=== PATIENT | female | born 1995 | race Two or more races ===

== ENCOUNTER → 2020-05-15 | Outpatient (CLI) | payer BC ==
[2020-05-15 10:24] LABS: Basophils # (auto) 0 10 ^3/uL (0-0.2); Basophils % (auto) 0.2 % (0.0-2.0); Eosinophils # (auto) 0.1 10 ^3/uL (0-0.8); Eosinophils % (auto) 0.7 % (0.0-7.0); Hematocrit 40.5 % (36.0-46.0); Hemoglobin 13.5 g/dL (12.2-16.2); Lymphocytes # (auto) 2.1 10 ^3/uL (0.4-5.4); Lymphocytes % (auto) 27.9 % (10.0-50.0); Mean Corpuscular Hemoglobin 27.8 pg (28.0-32.0); Mean Corpuscular Hgb Conc. 33.3 g/dL (32.0-36.0); Mean Corpuscular Volume 83.4 fL (80.0-100.0); Monocytes # (auto) 0.4 10 ^3/uL (0-1.3); Monocytes % (auto) 5.8 % (0.0-12.0); Neutrophils # (auto) 4.9 10 ^3/uL (1.6-8.6); Neutrophils % (auto) 65.4 % (37.0-80.0); Nucleated Red Blood Cells % 0.1 %; Platelet Count (auto) 238 10^3/uL (140-450); Red Blood Cells 4.86 10^6/uL (4.0-5.20); White Blood Cell 7.5 10^3/uL (4.4-10.8)
[2020-05-15 10:42] LABS: Alcohol, Urine < 3.0 mg/dL (0-10); Amphetamine Screen, Urine NEGATIVE (NEGATIVE); Barbiturate Scree,Urine NEGATIVE (NEGATIVE); Benzodiazephine Screen, Urine NEGATIVE (NEGATIVE); Cannabinoid Screen, Urine NEGATIVE (NEGATIVE); Cocaine Screen, Urine NEGATIVE (NEGATIVE); Opiate Scree,Urine NEGATIVE (NEGATIVE); Phencyclidine Screen, Urine NEGATIVE (NEGATIVE)
[2020-05-16 05:06] LABS: RPR Non Reactive (Non Reactive)
== END | disposition home or self-care (01) ==
LOC: LAB 09:50
PROVIDERS: ATTEND Obstetrics & Gynecology
DX: Z34.81 Encounter for supervision of other normal pregnancy, first trimester (principal); Z3A.10 10 weeks gestation of pregnancy; Z31.430 Encounter of female for testing for genetic disease carrier status for procreative management
CPT/HCPCS: 36415; 80307; 83036; 84112; 84144; 84702; 85025; 86592; 86703; 86762; 86850; 86900; 86901; 87086; 87340

== ENCOUNTER → 2020-11-13 | Outpatient (CLI) | payer BC ==
[2020-11-13 12:34] LABS: Basophils # (auto) 0 10 ^3/uL (0-0.2); Basophils % (auto) 0.2 % (0.0-2.0); Eosinophils # (auto) 0 10 ^3/uL (0-0.8); Eosinophils % (auto) 0.4 % (0.0-7.0); Hematocrit 31.8 % (36.0-46.0); Hemoglobin 10.8 g/dL (12.2-16.2); Lymphocytes # (auto) 1.8 10 ^3/uL (0.4-5.4); Lymphocytes % (auto) 21.1 % (10.0-50.0); Mean Corpuscular Hemoglobin 28.1 pg (28.0-32.0); Mean Corpuscular Hgb Conc. 33.9 g/dL (32.0-36.0); Mean Corpuscular Volume 83.1 fL (80.0-100.0); Monocytes # (auto) 0.6 10 ^3/uL (0-1.3); Monocytes % (auto) 6.8 % (0.0-12.0); Neutrophils % (auto) 71.5 % (37.0-80.0); Nucleated Red Blood Cells % 0.1 %; Platelet Count (auto) 180 10^3/uL (140-450); Red Blood Cells 3.82 10^6/uL (4.0-5.20); Red Cell Distribution Width 14.6 % (11.8-14.3); White Blood Cell 8.5 10^3/uL (4.4-10.8)
[2020-11-14 07:06] LABS: RPR Non Reactive (Non Reactive)
== END | disposition home or self-care (01) ==
LOC: LAB 12:04
PROVIDERS: ATTEND Obstetrics & Gynecology
DX: Z34.83 Encounter for supervision of other normal pregnancy, third trimester (principal); Z3A.35 35 weeks gestation of pregnancy
CPT/HCPCS: 36415; 85025; 86592

== ENCOUNTER → 2020-11-15 | Outpatient (CLI) | payer BC | END | disposition home or self-care (01) | LOC: LAB 07:45 | PROVIDERS: ATTEND Obstetrics & Gynecology | DX: O99.810 Abnormal glucose complicating pregnancy (principal); Z3A.36 36 weeks gestation of pregnancy | CPT/HCPCS: 82951 ==

== ENCOUNTER 2020-12-03 17:04 | Observation (INO) | payer BC ==
[~2020-12-03] VITALS: Ht 154.9 cm; Wt 77.1 kg
[2020-12-03] MEDS ORDERED: PREN27TA7 OR (17:35)
== END 2020-12-03 21:27 | disposition home or self-care (01) ==
LOC: LDRP 17:04
PROVIDERS: ADMIT Specialist; ATTEND Specialist
DX: O42.92 Full-term premature rupture of membranes, unspecified as to length of time between rupture and onset of labor (principal); O62.9 Abnormality of forces of labor, unspecified; Z3A.38 38 weeks gestation of pregnancy
CPT/HCPCS: 59025; 76815; 81002; 84112; 94760; G0378; Q0114

== ENCOUNTER 2020-12-10 02:47 | Observation (INO) | payer BC ==
[~2020-12-10 02:47] MED LIST: PREN27TA7 OR
== END 2020-12-10 03:53 | disposition home or self-care (01) ==
LOC: LDRP 02:47 → UNDOADMOB 02:47 → UNDODISOB 03:53
PROVIDERS: ADMIT Obstetrics & Gynecology; ATTEND Obstetrics & Gynecology
DX: O62.9 Abnormality of forces of labor, unspecified (principal); Z3A.39 39 weeks gestation of pregnancy
CPT/HCPCS: 59025; 81002; G0378

== ENCOUNTER 2020-12-12 16:58 | Observation (INO) | payer BC | END 2020-12-12 19:35 | disposition home or self-care (01) | LOC: LDRP 16:58 | PROVIDERS: ADMIT Obstetrics & Gynecology; ATTEND Obstetrics & Gynecology | DX: O48.0 Post-term pregnancy (principal); O62.9 Abnormality of forces of labor, unspecified; O26.873 Cervical shortening, third trimester; O24.419 Gestational diabetes mellitus in pregnancy, unspecified control; Z3A.40 40 weeks gestation of pregnancy | CPT/HCPCS: 59025; 76818; 81002; G0378 ==

== ENCOUNTER 2020-12-14 16:55 | Observation (INO) | payer BC ==
[~2020-12-14] VITALS: Ht 154.9 cm; Wt 77.1 kg
== END 2020-12-14 19:12 | disposition home or self-care (01) ==
LOC: LDRP 16:55
PROVIDERS: ADMIT Obstetrics & Gynecology; ATTEND Obstetrics & Gynecology
DX: O48.0 Post-term pregnancy (principal); Z3A.40 40 weeks gestation of pregnancy
CPT/HCPCS: 59025; 76818; 81002; G0378

== ENCOUNTER 2020-12-15 06:25 | Inpatient (IN) | payer BC ==
[~2020-12-15] VITALS: Ht 154.9 cm; Wt 77.1 kg
[2020-12-15] MEDS ORDERED: PHISODERM TOP SOLN 240ML BTL TOP PRN (07:15)
[2020-12-15] MEDS ORDERED: LACTATED RINGER'S 1,000 ML IV SCH (07:15)
[2020-12-15] MEDS ORDERED: METHYLERGONOVINE MALEATE 0.2 MG/ML AMP IM PRN (07:15)
[2020-12-15] MEDS ORDERED: LACT. RINGERS/OXYTOCIN 20UNITS 1,000 ML IV ONE (07:15)
[2020-12-15] MEDS ORDERED: PROMETHAZINE HCL 25 MG/ML 1ML IV PRN (07:15)
[2020-12-15] MEDS ORDERED: BUTORPHANOL TARTRATE 2 MG/1 ML VIAL IV PRN ×2 (07:15)
[2020-12-15] MEDS ORDERED: LACT. RINGERS/OXYTOCIN 20UNITS 1,000 ML IV SCH (07:15)
[2020-12-15] MEDS ORDERED: LIDOCAINE 2%HCL (LOCAL ANESTH.) INJ 20ML MDV IJ ONE (07:15)
[2020-12-15 08:11] LABS: Basophils # (auto) 0 10 ^3/uL (0-0.2); Basophils % (auto) 0.1 % (0.0-2.0); Eosinophils # (auto) 0 10 ^3/uL (0-0.8); Eosinophils % (auto) 0.3 % (0.0-7.0); Hematocrit 36.3 % (36.0-46.0); Lymphocytes # (auto) 1.9 10 ^3/uL (0.4-5.4); Mean Corpuscular Hemoglobin 27.4 pg (28.0-32.0); Mean Corpuscular Hgb Conc. 33.1 g/dL (32.0-36.0); Mean Corpuscular Volume 82.7 fL (80.0-100.0); Monocytes # (auto) 0.7 10 ^3/uL (0-1.3); Monocytes % (auto) 5.6 % (0.0-12.0); Neutrophils # (auto) 9.4 10 ^3/uL (1.6-8.6); Nucleated Red Blood Cells % 0.1 %; Red Blood Cells 4.39 10^6/uL (4.0-5.20); Red Cell Distribution Width 15.5 % (11.8-14.3); White Blood Cell 12.1 10^3/uL (4.4-10.8)
[2020-12-15 08:31] LABS: Albumin 2.9 g/dL (3.4-5.0); Calcium 8.9 mg/dL (8.5-10.1)
[2020-12-15 08:33] LABS: BUN/Creatinine Ratio 15.9; Bilirubin, Total 0.3 mg/dL (0.2-1.0); Total Protein 7.2 g/dL (6.4-8.2)
[2020-12-15 08:36] LABS: INR 0.9 (0.9-1.15)
[2020-12-15 09:01] LABS: Urine Bacteria NONE SEEN /hpf (None Seen); Urine Blood Negative /uL (Negative); Urine Mucus FEW (None Seen); Urine Specific Gravity 1.021 (1.001-1.035); Urine WBC 2 /hpf (0 - 5)
[2020-12-15 09:10] LABS: Amphetamine Screen, Urine NEGATIVE (NEGATIVE); Barbiturate Scree,Urine NEGATIVE (NEGATIVE); Benzodiazephine Screen, Urine NEGATIVE (NEGATIVE); Cannabinoid Screen, Urine NEGATIVE (NEGATIVE); Cocaine Screen, Urine NEGATIVE (NEGATIVE); Opiate Scree,Urine NEGATIVE (NEGATIVE); Phencyclidine Screen, Urine NEGATIVE (NEGATIVE)
[2020-12-15] MEDS: WITCH HAZEL-GLYCERIN PAD TOP PRN (12:06)
[2020-12-15] MEDS: DERMOPLAST 60ML BOTTLE TOP PRN (12:06)
[2020-12-15] MEDS ORDERED: ACETAMINOPHEN 325 MG TAB PO PRN (12:15)
[2020-12-15] MEDS: IBUPROFEN 600 MG TAB PO PRN ×3 (13:33→22:29)
[2020-12-15 15:21] VITALS: BP 133/73
[2020-12-15 19:30] VITALS: BP 124/68
[2020-12-15 22:39] VITALS: BP 133/78
[2020-12-16] VITALS (8 sets, daily range): BP systolic 106–131; BP diastolic 59–89
[2020-12-16] MEDS: IBUPROFEN 600 MG TAB PO PRN ×3 (04:21→22:26)
[2020-12-16 08:06] LABS: RPR Non Reactive (Non Reactive)
[2020-12-16] MEDS: WITCH HAZEL-GLYCERIN PAD TOP PRN (09:10)
[2020-12-16] MEDS: DERMOPLAST 60ML BOTTLE TOP PRN (09:11)
[2020-12-16] MEDS ORDERED: TETANUS-DIPTH-ACEL PERTUSSIS 0.5ML SYR Tdap IM ONE (21:00)
[2020-12-17 03:09] VITALS: BP 110/71
[2020-12-17] MEDS: IBUPROFEN 600 MG TAB PO PRN ×2 (04:39→10:06)
[2020-12-17 07:12] VITALS: BP 127/71
== END 2020-12-17 10:20 | disposition home or self-care (01) | DRG 807 ==
LOC: LDRP 06:25 → OBSVTOIN 07:02 → LDRP 08:49
PROVIDERS: ADMIT Obstetrics & Gynecology; ATTEND Obstetrics & Gynecology
PROC: 10E0XZZ Delivery of Products of Conception, External Approach (ICD-10-PCS; principal; 2020-12-15)
PROC: 0KQM0ZZ Repair Perineum Muscle, Open Approach (ICD-10-PCS; 2020-12-15)
PROC: 10907ZC Drainage of Amniotic Fluid, Therapeutic from Products of Conception, Via Natural or Artificial Opening (ICD-10-PCS; 2020-12-15)
DX: O69.81X0 Labor and delivery complicated by cord around neck, without compression, not applicable or unspecified (principal); Z37.0 Single live birth; Z3A.40 40 weeks gestation of pregnancy; O70.1 Second degree perineal laceration during delivery; Z20.822 Contact with and (suspected) exposure to COVID-19
CPT/HCPCS: 36415; 59025; 59409; 80053; 80307; 81001; 81002; 85025; 85610; 85730; 86592; 86850; 86900; 86901; 87426; 90715; 96360; 96361; 96365; 96366; 96372; G0378; J2590

== ENCOUNTER 2023-03-17 06:40 | Emergency (ER) | payer BC ==
[~2023-03-17] VITALS: Ht 154.9 cm; Wt 64.1 kg
[2023-03-17] MEDS ORDERED: diphenhdrAMINE HCL 50 MG/1 ML VL IM ONE (07:00)
[2023-03-17 07:16] VITALS: BP 132/87
[2023-03-17] MEDS ORDERED: DexAMETHasone SOD PHOS 4 MG/1ML SDV INJ IM ONE (08:00)
[2023-03-17] MEDS ORDERED: EPIN0.1I11 IJ (08:01)
== END 2023-03-17 08:06 | disposition home or self-care (01) ==
LOC: ER 06:40
DX: T78.49XA Other allergy, initial encounter (principal); X58.XXXA Exposure to other specified factors, initial encounter
CPT/HCPCS: 96372; 99284; J1100; J1200

== ENCOUNTER → 2023-03-26 | Outpatient (CLI) | payer BC ==
[~2023-03-26] MED LIST changes: +EPIN0.1I11 IJ
[2023-03-26 07:37] LABS: Basophils # (auto) 0 10 ^3/uL (0-0.2); Basophils % (auto) 0.4 % (0.0-2.0); Eosinophils # (auto) 0.1 10 ^3/uL (0-0.8); Eosinophils % (auto) 2.1 % (0.0-7.0); Hematocrit 40.4 % (36.0-46.0); Hemoglobin 13.7 g/dL (12.2-16.2); Lymphocytes # (auto) 2.4 10 ^3/uL (0.4-5.4); Lymphocytes % (auto) 43.3 % (10.0-50.0); Mean Corpuscular Hemoglobin 28.8 pg (28.0-32.0); Mean Corpuscular Volume 84.6 fL (80.0-100.0); Monocytes # (auto) 0.4 10 ^3/uL (0-1.3); Monocytes % (auto) 7.9 % (0.0-12.0); Neutrophils # (auto) 2.6 10 ^3/uL (1.6-8.6); Neutrophils % (auto) 46.3 % (37.0-80.0); Nucleated Red Blood Cells % 0.1 %; Red Blood Cells 4.78 10^6/uL (4.0-5.20); Red Cell Distribution Width 13.4 % (11.8-14.3); White Blood Cell 5.6 10^3/uL (4.4-10.8)
[2023-03-26 08:33] LABS: Albumin 3.9 g/dL (3.4-5.0); Calcium 8.6 mg/dL (8.5-10.1)
[2023-03-26 08:39] LABS: BUN/Creatinine Ratio 33.8 (10.0-20.0); Bilirubin, Total 0.5 mg/dL (0.2-1.0)
[2023-03-26 09:34] LABS: Hepatitis B Surface Antibody Negative (Negative)
[2023-03-26 10:03] LABS: Hepatitis A Total Antibody Positive (Negative)
[2023-03-26 12:23] LABS: Hepatitis C Antibody Negative (Negative)
[2023-03-27 07:07] LABS: RPR Non Reactive (Non Reactive)
== END | disposition home or self-care (01) ==
LOC: LAB 07:18
PROVIDERS: ATTEND Student in an Organized Health Care Education/Training Program
DX: Z00.00 Encounter for general adult medical examination without abnormal findings (principal); T78.2XXA Anaphylactic shock, unspecified, initial encounter; Z20.2 Contact with and (suspected) exposure to infections with a predominantly sexual mode of transmission; R55 Syncope and collapse
CPT/HCPCS: 36415; 80053; 80061; 85025; 86592; 86703; 86704; 86706; 86708; 86803; 87340

== ENCOUNTER → 2024-04-13 | Outpatient (CLI) | payer BC ==
[2024-04-13 07:30] LABS: Basophils # (auto) 0 10 ^3/uL (0-0.2); Basophils % (auto) 0.4 % (0.0-2.0); Eosinophils # (auto) 0.1 10 ^3/uL (0-0.8); Eosinophils % (auto) 0.6 % (0.0-7.0); Hematocrit 40.1 % (36.0-46.0); Hemoglobin 13.4 g/dL (12.2-16.2); Lymphocytes % (auto) 24.1 % (10.0-50.0); Mean Corpuscular Hemoglobin 28.4 pg (28.0-32.0); Mean Corpuscular Hgb Conc. 33.4 g/dL (32.0-36.0); Mean Corpuscular Volume 85.2 fL (80.0-100.0); Monocytes # (auto) 0.5 10 ^3/uL (0-1.3); Monocytes % (auto) 5.7 % (0.0-12.0); Neutrophils # (auto) 5.8 10 ^3/uL (1.6-8.6); Neutrophils % (auto) 69.2 % (37.0-80.0); Red Blood Cells 4.71 10^6/uL (4.0-5.20); Red Cell Distribution Width 13.6 % (11.8-14.3); White Blood Cell 8.3 10^3/uL (4.4-10.8)
[2024-04-13 07:45] LABS: Urine Bacteria FEW /hpf (None Seen); Urine Blood Negative /uL (Negative); Urine Clarity Turbid (Clear); Urine Color Yellow (Yellow); Urine Mucus FEW (None Seen); Urine Protein, UAD TRACE (Negative); Urine Specific Gravity 1.032 (1.001-1.035); Urine Urobilinogen Normal (Negative); Urine WBC 8 /hpf (0 - 5)
[2024-04-13 08:08] LABS: Alanine Aminotransferase 12 U/L (7-40); Albumin 4.8 g/dL (3.2-4.8); Anion Gap 7 (5-15); Aspartate Aminotransferase < 8 U/L (13-40); BUN/Creatinine Ratio 25.3 (10.0-20.0); Blood Urea Nitrogen 20 mg/dL (9-23); Calcium 9.6 mg/dL (8.5-10.1); Carbon Dioxide 26 mmol/L (20-30); Chloride 105 mmol/L (98-107); Cholesterol 163 mg/dL (< 200); Glucose 99 mg/dL (74-106); HDL Cholesterol 71 mg/dL (40-59); LDL Cholesterol 89 mg/dL (< 100); Potassium 4.2 mmol/L (3.5-5.1); Sodium 138 mmol/L (136-145); Triglycerides 76 mg/dL (< 150)
[2024-04-13 08:09] LABS: Alkaline Phosphatase 44 U/L (46-116); Bilirubin, Total 0.7 mg/dL (0.2-1.0); Total Protein 7.1 g/dL (5.7-8.2)
[2024-04-14 07:06] LABS: RPR Non Reactive (Non Reactive)
[2024-04-15 11:07] LABS: Chlamydia Trachomatis, NAA Negative (Negative); Neisseria gonorrhoeae, NAA Negative (Negative)
== END | disposition home or self-care (01) ==
LOC: LAB 07:01
PROVIDERS: ATTEND Student in an Organized Health Care Education/Training Program
DX: Z11.3 Encounter for screening for infections with a predominantly sexual mode of transmission (principal); Z00.01 Encounter for general adult medical examination with abnormal findings
CPT/HCPCS: 36415; 80053; 80061; 80074; 81001; 82306; 83036; 84443; 85025; 86592; 86703

== ENCOUNTER 2025-05-03 06:33 | Outpatient (CLI) | payer BC ==
[2025-05-03 07:54] LABS: Alanine Aminotransferase 17 U/L (7-40); Anion Gap 8 (5-15); BUN/Creatinine Ratio 26.4 (10.0-20.0); Carbon Dioxide 26 mmol/L (20-31); Chloride 105 mmol/L (98-107); Glucose 99 mg/dL (74-106); Potassium 4.8 mmol/L (3.5-5.1); Sodium 139 mmol/L (136-145); Total Protein 7.7 g/dL (5.7-8.2); Triglycerides 73 mg/dL (< 150)
[2025-05-03 07:55] LABS: Bilirubin, Total 0.5 mg/dL (0.2-1.0); Cholesterol 150 mg/dL (< 200); Urine Protein, UAD Negative (Negative)
[2025-05-03 07:58] LABS: Albumin 5.2 g/dL (3.2-4.8); Alkaline Phosphatase 38 U/L (46-116); Blood Urea Nitrogen 23 mg/dL (9-23); Calcium 10.4 mg/dL (8.7-10.4); HDL Cholesterol 61 mg/dL (40-59)
[2025-05-03 11:16] LABS: Hepatitis A Total Antibody Positive (Negative); Hepatitis B Surface Antigen Negative (Negative); Hepatitis C Antibody Negative (Negative)
[2025-05-04 15:07] LABS: Chlamydia Trachomatis, NAA Negative (Negative); Neisseria gonorrhoeae, NAA Negative (Negative)
== END 2025-05-03 17:00 | disposition home or self-care (01) ==
LOC: LAB 06:33
PROVIDERS: ATTEND Nurse Practitioner Family
DX: E55.9 Vitamin D deficiency, unspecified (principal); Z11.3 Encounter for screening for infections with a predominantly sexual mode of transmission; Z00.01 Encounter for general adult medical examination with abnormal findings
CPT/HCPCS: 36415; 80053; 80061; 81003; 82306; 83036; 84443; 86703; 86704; 86706; 86708; 86803; 87340

== ENCOUNTER 2025-07-12 12:08 | Outpatient (CLI) | payer BC | END 2025-07-13 17:00 | disposition home or self-care (01) | LOC: LAB 12:08 | PROVIDERS: ATTEND Nurse Practitioner Family | DX: Z23 Encounter for immunization (principal) | CPT/HCPCS: 36415; 84702 ==

== ENCOUNTER → 2025-07-19 | Outpatient (CLI) | payer BC | END | disposition home or self-care (01) | LOC: LAB 10:48 | PROVIDERS: ATTEND Nurse Practitioner Family | DX: N91.2 Amenorrhea, unspecified (principal); Z32.01 Encounter for pregnancy test, result positive | CPT/HCPCS: 36415; 81025; 84702 ==